=== PATIENT | male | born 1965 | race African-American/Black ===

== ENCOUNTER 2018-07-29 14:27 | Inpatient (IN) | payer OTHER ==
[2018-07-29 17:25] VITALS: BMI 24.1
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
[2018-07-29] MEDS ORDERED: MAG HYDROX/AL HYDROX/SIMETH 30 ML UNIT-DOSE CUP PO PRN (18:55)
[2018-07-29] MEDS ORDERED: IBUPROFEN 400 MG TABLET (FP) PO PRN (18:55)
[2018-07-29] MEDS ORDERED: NICOTINE POLACRILEX 2 MG GUM BC PRN (18:55)
[2018-07-29] MEDS ORDERED: P-EPHED 60MG/TRIPROLIDI 2.5MG TABLET PO PRN (18:55)
[2018-07-29] MEDS ORDERED: MAGNESIUM CITRATE 300 ML BOTTLE PO PRN (18:55)
[2018-07-29] MEDS ORDERED: MAGNESIUM HYDROX 2400MG/30ML ORAL SUSPENSION 30 ML CUP PO PRN (18:55)
[2018-07-29] MEDS ORDERED: LOPERAMIDE HCL 2 MG CAPSULE PO PRN (18:55)
[2018-07-29] MEDS ORDERED: ALBUTEROL SO4 8 GM HFA INHALER IH PRN (18:56)
[2018-07-29] MEDS ORDERED: diazePAM 5 MG TABLET PO ONE (20:00)
[2018-07-29] MEDS: ACETAMINOPHEN 325 MG TABLET (FP) PO PRN (22:34)
[2018-07-29] MEDS: MELATONIN 5 MG TABLETS PO PRN (22:38)
[2018-07-29] MEDS: diazePAM 5 MG TABLET PO SCH (22:38)
[2018-07-29] MEDS: THIAMINE HCL 100 MG TABLET (FP) PO SCH (22:38)
[2018-07-30] MEDS: diazePAM 5 MG TABLET PO SCH ×3 (06:22→22:11)
[2018-07-30] MEDS: diazePAM 5 MG TABLET PO PRN ×2 (09:52→17:07)
[2018-07-30] MEDS: NICOTINE 14 MG/24 HOURS TOPICAL PATCH TD SCH (09:52)
[2018-07-30] MEDS: MENTHOL/PHENOL 1 EACH UD MM PRN ×2 (09:52→17:07)
[2018-07-30] MEDS: PRENATAL VITAMINS W/ FOLIC ACID TABLET (FP) PO SCH (09:52)
[2018-07-30 10:21] LABS: HEMATOCRIT 38.6 % (35.4-49); HEMOGLOBIN 12.7 GM/dL (11.7-16.9); MCH 31.3 pg (25.7-33.7); MEAN CELL VOLUME 94.8 fl (80-96); MEAN PLT VOLUME 9.5 fl (7.5-11.1); PLATELET COUNT 199 K/MM3 (134-434); RBC 4.07 M/mm3 (4.00-5.60); RDW 13.8 % (11.9-15.9); WHITE BLOOD COUNT 5.7 K/mm3 (4.0-10.0)
[2018-07-30 10:56] LABS: ALBUMIN 3.2 g/dl (3.4-5.0); ALK PHOS 57 U/L (45-117); ANION GAP 9 MMOL/L (8-16); BILIRUBIN,TOTAL 0.6 mg/dL (0.2-1); BLOOD UREA NITROGEN 13 mg/dL (7-18); CALCIUM 8.4 mg/dL (8.5-10.1); CHLORIDE 107 mmol/L (98-107); CO2 28 mmol/L (21-32); CREATININE 1.1 mg/dL (0.55-1.3); GLUCOSE,RANDOM 87 mg/dL (74-106); POTASSIUM 3.9 mmol/L (3.5-5.1); SGOT/AST 15 U/L (15-37); SGPT/ALT 20 U/L (13-61); SODIUM 144 mmol/L (136-145); TOT PROT 5.7 g/dl (6.4-8.2)
[2018-07-30 13:26] LABS: URINE APPEARANCE CLEAR; URINE BILIRUBIN NEGATIVE (<2.0 mg/dL); URINE COLOR YELLOW; URINE GLUCOSE (UA) NEGATIVE (NEGATIVE); URINE KETONE NEGATIVE (NEGATIVE); URINE LEUK ESTERASE NEGATIVE (NEGATIVE); URINE NITRITE NEGATIVE (NEGATIVE); URINE PROTEIN NEGATIVE (NEGATIVE)
--- NOTE | 2018-07-30 14:46 | EKG ---
Test Reason : Blood Pressure : / mmHG Vent. Rate : 078 BPM Atrial Rate : 078 BPM P-R Int : 132 ms QRS Dur : 082 ms QT Int : 354 ms P-R-T Axes : 079 076 065 degrees QTc Int : 403 ms NORMAL SINUS RHYTHM VOLTAGE CRITERIA FOR LEFT VENTRICULAR HYPERTROPHY NONSPECIFIC T WAVE ABNORMALITY ABNORMAL ECG WHEN COMPARED WITH ECG OF 07-AUG-2017 11:01, NO SIGNIFICANT CHANGE WAS FOUND Confirmed by MD Amita, Owen ([id number]) on 07/30/2018 2:45:53 PM Referred By: Confirmed By:Owen Levi MD
--- NOTE | 2018-07-30 16:55 | PN ---
[facility] CIWA - CIWA Score Nausea/Vomitin-No Nausea/No Vomiting Muscle Tremors: 2 Anxiety: 2 Agitation: 2 Paroxysmal Sweats: 2 Orientation: 0-Oriented Tacttile Disturbances: 1-Very Mild Itch/Numbness Auditory Disturbances: 0-None Visual Disturbances: 1-Very Mild Sensitivity Headache: 2-Mild CIWA-Ar Total Score: 12 S Progress Note (SOAP) Subjective: body aches, chills, sweats Objective: 07/30/18 16:54 Vital Signs Temperature 96.6 F L 07/30/18 13:43 Pulse Rate 74 07/30/18 13:43 Respiratory Rate 18 07/30/18 13:43 Blood Pressure 125/84 07/30/18 13:43 O2 Sat by Pulse Oximetry (%) Laboratory Last Values WBC 5.7 K/mm3 (4.0-10.0) 07/30/18 08:00 RBC 4.07 M/mm3 (4.00-5.60) 07/30/18 08:00 Hgb 12.7 GM/dL (11.7-16.9) 07/30/18 08:00 Hct 38.6 % (35.4-49) 07/30/18 08:00 MCV 94.8 fl (80-96) 07/30/18 08:00 MCH 31.3 pg (25.7-33.7) 07/30/18 08:00 MCHC 33.0 g/dl (32.0-35.9) 07/30/18 08:00 RDW 13.8 % (11.9-15.9) 07/30/18 08:00 Plt Count 199 K/MM3 (134-434) 07/30/18 08:00 MPV 9.5 fl (7.5-11.1) 07/30/18 08:00 Sodium 144 mmol/L (136-145) 07/30/18 08:00 Potassium 3.9 mmol/L (3.5-5.1) 07/30/18 08:00 Chloride 107 mmol/L (98-107) 07/30/18 08:00 Carbon Dioxide 28 mmol/L (21-32) 07/30/18 08:00 Anion Gap 9 MMOL/L (8-16) 07/30/18 08:00 BUN 13 mg/dL (7-18) 07/30/18 08:00 Creatinine 1.1 mg/dL (0.55-1.3) 07/30/18 08:00 Creat Clearance w eGFR > 60 (>60) 07/30/18 08:00 Random Glucose 87 mg/dL (74-106) 07/30/18 08:00 Calcium 8.4 mg/dL (8.5-10.1) L 07/30/18 08:00 Total Bilirubin 0.6 mg/dL (0.2-1) 07/30/18 08:00 AST 15 U/L (15-37) 07/30/18 08:00 ALT 20 U/L (13-61) 07/30/18 08:00 Alkaline Phosphatase 57 U/L (45-117) 07/30/18 08:00 Total Protein 5.7 g/dl (6.4-8.2) L 07/30/18 08:00 Albumin 3.2 g/dl (3.4-5.0) L 07/30/18 08:00 Urine Color Yellow 07/30/18 09:30 Urine Appearance Clear 07/30/18 09:30 Urine pH 6.0 (5.0-8.0) 07/30/18 09:30 Ur Specific [place] 1.015 (1.010-1.035) 07/30/18 09:30 Urine Protein Negative (NEGATIVE) 07/30/18 09:30 Urine Glucose (UA) Negative (NEGATIVE) 07/30/18 09:30 Urine Ketones Negative (NEGATIVE) 07/30/18 09:30 Urine Blood Negative (NEGATIVE) 07/30/18 09:30 Urine Nitrite Negative (NEGATIVE) 07/30/18 09:30 Urine Bilirubin Negative (<2.0 mg/dL) 07/30/18 09:30 Urine Urobilinogen 2.0 mg/dL (0.2-1.0) 07/30/18 09:30 Ur Leukocyte Esterase Negative (NEGATIVE) 07/30/18 09:30 RPR Titer Nonreactive (NONREACTIVE) 07/30/18 08:00 Aox3 no distress no adventitious breath sounds full ROM ambulatory Assessment: 07/30/18 16:54 withdrawal sx Plan: increase fluids continue detox continue to monitor
[2018-07-30] MEDS: ACETAMINOPHEN 325 MG TABLET (FP) PO PRN (17:08)
[2018-07-30] MEDS: THIAMINE HCL 100 MG TABLET (FP) PO SCH (22:11)
[2018-07-30] MEDS: guaiFENesin/D-METHORPHAN HB 10 ML UNIT-DOSE CUPS PO PRN (22:12)
[2018-07-31] MEDS: diazePAM 5 MG TABLET PO PRN (03:08)
[2018-07-31] MEDS ORDERED: hydrOXYzine HCL 25 MG TABLET (FP) PO PRN (10:16)
[2018-07-31] MEDS: NICOTINE 14 MG/24 HOURS TOPICAL PATCH TD SCH (10:34)
[2018-07-31] MEDS: PRENATAL VITAMINS W/ FOLIC ACID TABLET (FP) PO SCH (10:34)
[2018-07-31] MEDS: diazePAM 5 MG TABLET PO SCH ×2 (10:34→22:12)
[2018-07-31] MEDS: guaiFENesin/D-METHORPHAN HB 10 ML UNIT-DOSE CUPS PO PRN ×2 (10:35→17:56)
--- NOTE | 2018-07-31 12:00 | PN ---
[facility] CIWA - CIWA Score Nausea/Vomitin Muscle Tremors: 3 Anxiety: 3 Agitation: 3 Paroxysmal Sweats: 3 Orientation: 0-Oriented Tacttile Disturbances: 0-None Auditory Disturbances: 0-None Visual Disturbances: 0-None Headache: 0-None Present CIWA-Ar Total Score: 14 S Progress Note (SOAP) Subjective: Runny nose, sneezing, chills, interrupted sleep, anxious Objective: 07/31/18 11:58 Last Vital Signs Temp Pulse Resp BP Pulse Ox 97.2 F L 83 18 128/76 07/31/18 09:36 07/31/18 09:36 07/31/18 09:36 07/31/18 09:36 Laboratory Tests 07/30/18 07/30/18 07/30/18 08:00 08:00 08:00 WBC 5.7 RBC 4.07 Hgb 12.7 Hct 38.6 MCV 94.8 MCH 31.3 MCHC 33.0 RDW 13.8 Plt Count 199 MPV 9.5 Sodium 144 Potassium 3.9 Chloride 107 Carbon Dioxide 28 Anion Gap 9 BUN 13 Creatinine 1.1 Creat Clearance w eGFR > 60 Random Glucose 87 Calcium 8.4 L Total Bilirubin 0.6 AST 15 ALT 20 Alkaline Phosphatase 57 Total Protein 5.7 L Albumin 3.2 L Urine Color Urine Appearance Urine pH Ur Specific [place] Urine Protein Urine Glucose (UA) Urine Ketones Urine Blood Urine Nitrite Urine Bilirubin Urine Urobilinogen Ur Leukocyte Esterase RPR Titer Nonreactive 07/30/18 09:30 WBC RBC Hgb Hct MCV MCH MCHC RDW Plt Count MPV Sodium Potassium Chloride Carbon Dioxide Anion Gap BUN Creatinine Creat Clearance w eGFR Random Glucose Calcium Total Bilirubin AST ALT Alkaline Phosphatase Total Protein Albumin Urine Color Yellow Urine Appearance Clear Urine pH 6.0 Ur Specific [place] 1.015 Urine Protein Negative Urine Glucose (UA) Negative Urine Ketones Negative Urine Blood Negative Urine Nitrite Negative Urine Bilirubin Negative Urine Urobilinogen 2.0 Ur Leukocyte Esterase Negative RPR Titer Labs reviewed Assessment: 07/31/18 12:00 Withdrawal symptoms Plan: Continue detox Encouraged PO water intake
[2018-07-31] MEDS: ACETAMINOPHEN 325 MG TABLET (FP) PO PRN (12:55)
[2018-07-31] MEDS: MENTHOL/PHENOL 1 EACH UD MM PRN (12:57)
[2018-07-31] MEDS: THIAMINE HCL 100 MG TABLET (FP) PO SCH (22:12)
[2018-07-31] MEDS: MELATONIN 5 MG TABLETS PO PRN (22:13)
[2018-08-01 09:05] VITALS: BP 132/83; PULSE 86; TEMP 98.1
--- NOTE | 2018-08-01 09:56 | DS ---
[facility] Detox Discharge Summary Admission Date: 07/29/18 Discharge Date: 08/01/18 - History Present History: Alcohol Dependence Additional Comments: Patient requested to leave today. As per patient, he is feeling much better and denied any withdrawal symptoms. As per patient, his daughter is scheduled to have surgery today at 12 noon and he has to leave. Patient agreed to call 911 if feeling sick or any withdrawal symptoms and to follow up with his PCP within 1 week. Patient given regular discharge.He is stable for discharge and is in nad. Pertinent Past History: Sickle cell anemia Asthma COPD Emphysema Nicotine dependence - Physical Exam Results Vital Signs: Vital Signs Temperature 98.1 F 08/01/18 09:05 Pulse Rate 86 08/01/18 09:05 Respiratory Rate 18 08/01/18 09:05 Blood Pressure 132/83 08/01/18 09:05 O2 Sat by Pulse Oximetry (%) Pertinent Admission Physical Exam Findings: Withdrawal symptoms Laboratory Tests 07/30/18 07/30/18 07/30/18 08:00 08:00 08:00 WBC 5.7 RBC 4.07 Hgb 12.7 Hct 38.6 MCV 94.8 MCH 31.3 MCHC 33.0 RDW 13.8 Plt Count 199 MPV 9.5 Sodium 144 Potassium 3.9 Chloride 107 Carbon Dioxide 28 Anion Gap 9 BUN 13 Creatinine 1.1 Creat Clearance w eGFR > 60 Random Glucose 87 Calcium 8.4 L Total Bilirubin 0.6 AST 15 ALT 20 Alkaline Phosphatase 57 Total Protein 5.7 L Albumin 3.2 L Urine Color Urine Appearance Urine pH Ur Specific [place] Urine Protein Urine Glucose (UA) Urine Ketones Urine Blood Urine Nitrite Urine Bilirubin Urine Urobilinogen Ur Leukocyte Esterase RPR Titer Nonreactive 07/30/18 09:30 WBC RBC Hgb Hct MCV MCH MCHC RDW Plt Count MPV Sodium Potassium Chloride Carbon Dioxide Anion Gap BUN Creatinine Creat Clearance w eGFR Random Glucose Calcium Total Bilirubin AST ALT Alkaline Phosphatase Total Protein Albumin Urine Color Yellow Urine Appearance Clear Urine pH 6.0 Ur Specific [place] 1.015 Urine Protein Negative Urine Glucose (UA) Negative Urine Ketones Negative Urine Blood Negative Urine Nitrite Negative Urine Bilirubin Negative Urine Urobilinogen 2.0 Ur Leukocyte Esterase Negative RPR Titer Labs reviewed - Treatment Hospital Course: Detox Protocol Followed, Detoxed Safely, Responded well, Discharged Condition Good - Medication Discharge Medications: Ambulatory Orders Albuterol Sulfate Inhaler - [Ventolin HFA Inhaler -] 2 puff IH Q4H PRN #1 inhaler 08/09/17 - Diagnosis (1) Alcohol dependence with uncomplicated withdrawal Status: Acute (2) Asthma Status: Chronic Qualifiers: Asthma severity: mild Asthma complication type: with status asthmaticus (3) Depression Status: Chronic Qualifiers: Depression Type: unspecified Qualified Code(s): F32.9 - Major depressive disorder, single episode, unspecified (4) Emphysema/COPD Status: Chronic Qualifiers: Emphysema type: unilateral Qualified Code(s): J43.0 - Unilateral pulmonary emphysema [MacLeod's syndrome] (5) Nicotine dependence Status: Chronic Qualifiers: Nicotine product type: cigarettes Substance use status: uncomplicated Qualified Code(s): F17.210 - Nicotine dependence, cigarettes, uncomplicated (6) Sickle cell anemia Status: Chronic Qualifiers: Sickle-cell associated disorders: without crisis Qualified Code(s): D57.1 - Sickle-cell disease without crisis - AMA Did Patient Leave Against Medical Advice: No (F/U with your PCP within 1 week)
[2018-08-02] MEDS ORDERED: diazePAM 5 MG TABLET PO SCH (10:00)
== END 2018-08-01 09:17 | disposition home or self-care (01) | DRG 774 ==
LOC: YASAS 14:27 → Y3N 19:26
PROC: HZ2ZZZZ Detoxification Services for Substance Abuse Treatment (ICD-10-PCS; principal; 2018-07-29)
DX: F10.230 Alcohol dependence with withdrawal, uncomplicated (principal); F13.230 Sedative, hypnotic or anxiolytic dependence with withdrawal, uncomplicated; F14.20 Cocaine dependence, uncomplicated; F17.210 Nicotine dependence, cigarettes, uncomplicated; F32.9 Major depressive disorder, single episode, unspecified; J45.902 Unspecified asthma with status asthmaticus; J43.0 Unilateral pulmonary emphysema [MacLeod's syndrome]; D57.1 Sickle-cell disease without crisis; R01.1 Cardiac murmur, unspecified; G47.30 Sleep apnea, unspecified; Z88.0 Allergy status to penicillin; Z88.6 Allergy status to analgesic agent; Z87.891 Personal history of nicotine dependence
CPT/HCPCS: 36415; 80053; 81003; 85027; 86593; 93005; 93010

== ENCOUNTER 2018-09-19 11:54 | Inpatient (IN) | payer OTHER ==
[2018-09-19 12:43] VITALS: BMI 23.5
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
[2018-09-19] MEDS ORDERED: ACETAMINOPHEN 325 MG TABLET (FP) PO PRN (14:47)
[2018-09-19] MEDS ORDERED: MAG HYDROX/AL HYDROX/SIMETH 30 ML UNIT-DOSE CUP PO PRN (14:47)
[2018-09-19] MEDS ORDERED: MAGNESIUM CITRATE 300 ML BOTTLE PO PRN (14:47)
[2018-09-19] MEDS ORDERED: hydrOXYzine PAMOATE 50 MG CAPSULE (FP) PO PRN (14:47)
[2018-09-19] MEDS ORDERED: IBUPROFEN 400 MG TABLET (FP) PO PRN (14:47)
[2018-09-19] MEDS ORDERED: MAGNESIUM HYDROX 2400MG/30ML ORAL SUSPENSION 30 ML CUP PO PRN (14:47)
[2018-09-19] MEDS ORDERED: P-EPHED 60MG/TRIPROLIDI 2.5MG TABLET PO PRN (14:47)
[2018-09-19] MEDS ORDERED: MENTHOL/PHENOL 1 EACH UD MM PRN (14:47)
[2018-09-19] MEDS ORDERED: ALBUTEROL SO4 8 GM HFA INHALER IH PRN (14:50)
[2018-09-19] MEDS ORDERED: diazePAM 5 MG TABLET PO PRN (14:51)
[2018-09-19] MEDS ORDERED: diazePAM 5 MG TABLET PO ONE (16:00)
[2018-09-19] MEDS: MELATONIN 5 MG TABLETS PO PRN (22:24)
[2018-09-19] MEDS: THIAMINE HCL 100 MG TABLET (FP) PO SCH (22:24)
[2018-09-19] MEDS: diazePAM 5 MG TABLET PO SCH (22:24)
[2018-09-20] MEDS: diazePAM 5 MG TABLET PO SCH ×3 (05:46→22:19)
[2018-09-20 10:30] LABS: HEMATOCRIT 38.3 % (35.4-49); HEMOGLOBIN 12.7 GM/dL (11.7-16.9); MCH 31.1 pg (25.7-33.7); MCHC 33.1 g/dl (32.0-35.9); MEAN CELL VOLUME 94.1 fl (80-96); MEAN PLT VOLUME 9.1 fl (7.5-11.1); PLATELET COUNT 219 K/MM3 (134-434); RBC 4.07 M/mm3 (4.00-5.60); RDW 13.5 % (11.9-15.9)
[2018-09-20] MEDS: PRENATAL VITAMINS W/ FOLIC ACID TABLET (FP) PO SCH (10:40)
[2018-09-20] MEDS: LOPERAMIDE HCL 2 MG CAPSULE PO PRN (10:42)
[2018-09-20 10:44] LABS: ALK PHOS 61 U/L (45-117); ANION GAP 6 MMOL/L (8-16); BILIRUBIN,TOTAL 0.3 mg/dL (0.2-1); BLOOD UREA NITROGEN 17 mg/dL (7-18); CALCIUM 8.2 mg/dL (8.5-10.1); CHLORIDE 108 mmol/L (98-107); CO2 26 mmol/L (21-32); CREATININE 1.1 mg/dL (0.55-1.3); GLUCOSE,RANDOM 94 mg/dL (74-106); POTASSIUM 4.1 mmol/L (3.5-5.1); SGOT/AST 20 U/L (15-37); SGPT/ALT 35 U/L (13-61); SODIUM 140 mmol/L (136-145); TOT PROT 5.7 g/dl (6.4-8.2)
[2018-09-20] MEDS: guaiFENesin/D-METHORPHAN HB 10 ML UNIT-DOSE CUPS PO PRN ×2 (13:26→22:20)
--- NOTE | 2018-09-20 14:53 | PN ---
[facility] CIWA - CIWA Score Nausea/Vomitin-No Nausea/No Vomiting Muscle Tremors: 3 Anxiety: 3 Agitation: 2 Paroxysmal Sweats: 1-Minimal Palms Moist Orientation: 0-Oriented Tacttile Disturbances: 0-None Auditory Disturbances: 0-None Visual Disturbances: 0-None Headache: 2-Mild CIWA-Ar Total Score: 11 S Progress Note (SOAP) Subjective: low energy tremor cold sweat anxiety anxious about relapse Objective: 09/20/18 14:56 Vital Signs Temperature 97.4 F L 09/20/18 14:46 Pulse Rate 75 09/20/18 14:46 Respiratory Rate 16 09/20/18 14:46 Blood Pressure 130/80 09/20/18 14:46 O2 Sat by Pulse Oximetry (%) Laboratory Last Values WBC 5.0 K/mm3 (4.0-10.0) 09/20/18 07:00 RBC 4.07 M/mm3 (4.00-5.60) 09/20/18 07:00 Hgb 12.7 GM/dL (11.7-16.9) 09/20/18 07:00 Hct 38.3 % (35.4-49) 09/20/18 07:00 MCV 94.1 fl (80-96) 09/20/18 07:00 MCH 31.1 pg (25.7-33.7) 09/20/18 07:00 MCHC 33.1 g/dl (32.0-35.9) 09/20/18 07:00 RDW 13.5 % (11.9-15.9) 09/20/18 07:00 Plt Count 219 K/MM3 (134-434) 09/20/18 07:00 MPV 9.1 fl (7.5-11.1) 09/20/18 07:00 Sodium 140 mmol/L (136-145) 09/20/18 07:00 Potassium 4.1 mmol/L (3.5-5.1) 09/20/18 07:00 Chloride 108 mmol/L (98-107) H 09/20/18 07:00 Carbon Dioxide 26 mmol/L (21-32) 09/20/18 07:00 Anion Gap 6 MMOL/L (8-16) L 09/20/18 07:00 BUN 17 mg/dL (7-18) 09/20/18 07:00 Creatinine 1.1 mg/dL (0.55-1.3) 09/20/18 07:00 Creat Clearance w eGFR > 60 (>60) 09/20/18 07:00 Random Glucose 94 mg/dL (74-106) 09/20/18 07:00 Calcium 8.2 mg/dL (8.5-10.1) L 09/20/18 07:00 Total Bilirubin 0.3 mg/dL (0.2-1) 09/20/18 07:00 AST 20 U/L (15-37) 09/20/18 07:00 ALT 35 U/L (13-61) 09/20/18 07:00 Alkaline Phosphatase 61 U/L (45-117) 09/20/18 07:00 Total Protein 5.7 g/dl (6.4-8.2) L 09/20/18 07:00 Albumin 3.0 g/dl (3.4-5.0) L 09/20/18 07:00 RPR Titer Nonreactive (NONREACTIVE) 09/20/18 07:00 lab noted Assessment: 09/20/18 14:57 withdrawal sx Plan: continue detox
[2018-09-20] MEDS: THIAMINE HCL 100 MG TABLET (FP) PO SCH (22:19)
[2018-09-20] MEDS: MELATONIN 5 MG TABLETS PO PRN (22:20)
[2018-09-21] MEDS: PRENATAL VITAMINS W/ FOLIC ACID TABLET (FP) PO SCH (10:04)
[2018-09-21] MEDS: diazePAM 5 MG TABLET PO SCH ×2 (10:04→22:06)
--- NOTE | 2018-09-21 11:15 | PN ---
S CIWA - CIWA Score Nausea/Vomitin Muscle Tremors: 3 Anxiety: 2 Agitation: 1-Slight > Activity Paroxysmal Sweats: No Perspiration Orientation: 0-Oriented Tacttile Disturbances: 0-None Auditory Disturbances: 0-None Visual Disturbances: 0-None Headache: 0-None Present CIWA-Ar Total Score: 9 [facility] Progress Note (SOAP) Subjective: PATIENT C/O NAUSEA AND VOMITING LAST NIGHT, ANXIETY, [place]. Objective: 09/21/18 11:13 Vital Signs Temperature 96 F L 09/21/18 09:04 Pulse Rate 84 09/21/18 09:04 Respiratory Rate 20 09/21/18 09:04 Blood Pressure 126/81 09/21/18 09:04 O2 Sat by Pulse Oximetry (%) Laboratory Tests 09/20/18 09/20/18 09/20/18 07:00 07:00 07:00 WBC 5.0 RBC 4.07 Hgb 12.7 Hct 38.3 MCV 94.1 MCH 31.1 MCHC 33.1 RDW 13.5 Plt Count 219 MPV 9.1 Sodium 140 Potassium 4.1 Chloride 108 H Carbon Dioxide 26 Anion Gap 6 L BUN 17 Creatinine 1.1 Creat Clearance w eGFR > 60 Random Glucose 94 Calcium 8.2 L Total Bilirubin 0.3 AST 20 ALT 35 Alkaline Phosphatase 61 Total Protein 5.7 L Albumin 3.0 L RPR Titer Nonreactive PE: ALERT AND ORIENTED X 3 SKIN WARM AND DRY EXT FULL ROM, AMB AD ANNA MARIE +TREMORS +ANXIETY Assessment: 09/21/18 11:14 WITHDRAWAL SX Plan: CONTINUE DETOX ENCOURAGED ORAL FLUIDS CONTINUE TO MONITOR CLINICALLY
[2018-09-21] MEDS: THIAMINE HCL 100 MG TABLET (FP) PO SCH (22:06)
[2018-09-21] MEDS: MELATONIN 5 MG TABLETS PO PRN (22:07)
[2018-09-22] MEDS: diazePAM 5 MG TABLET PO SCH ×2 (10:17→23:16)
[2018-09-22] MEDS: PRENATAL VITAMINS W/ FOLIC ACID TABLET (FP) PO SCH (10:17)
[2018-09-22] MEDS: LOPERAMIDE HCL 2 MG CAPSULE PO PRN (12:26)
--- NOTE | 2018-09-22 13:31 | PN ---
[facility] Progress Note Note: PATIENT CONTINUES WITH DETOX REGIMEN. C/O INDIGESTION AND SOFT STOOLS. Vital Signs Temperature 97.4 F L 09/22/18 09:07 Pulse Rate 80 09/22/18 09:07 Respiratory Rate 16 09/22/18 09:07 Blood Pressure 119/76 09/22/18 09:07 O2 Sat by Pulse Oximetry (%) Laboratory Tests 09/20/18 09/20/18 09/20/18 07:00 07:00 07:00 WBC 5.0 RBC 4.07 Hgb 12.7 Hct 38.3 MCV 94.1 MCH 31.1 MCHC 33.1 RDW 13.5 Plt Count 219 MPV 9.1 Sodium 140 Potassium 4.1 Chloride 108 H Carbon Dioxide 26 Anion Gap 6 L BUN 17 Creatinine 1.1 Creat Clearance w eGFR > 60 Random Glucose 94 Calcium 8.2 L Total Bilirubin 0.3 AST 20 ALT 35 Alkaline Phosphatase 61 Total Protein 5.7 L Albumin 3.0 L RPR Titer Nonreactive PE: ALERT AND ORIENTED X 3 SKIN WARM AND DRY EXT FULL ROM, NO EDEMA AMB AD ANNA MARIE A/P: WITHDRAWAL SX CONTINUE DETOX ENCOURAGE ORAL FLUIDS GINGERALE WITH MEALS MONITOR
[2018-09-22] MEDS: THIAMINE HCL 100 MG TABLET (FP) PO SCH (23:16)
[2018-09-23 06:36] VITALS: BP 119/70; PULSE 65; TEMP 96.9
[2018-09-23] MEDS ORDERED: diazePAM 5 MG TABLET PO SCH (10:00)
--- NOTE | 2018-09-23 10:26 | DS ---
[facility] Detox Discharge Summary Admission Date: 09/19/18 Discharge Date: 09/23/18 - History Present History: Alcohol Dependence, Cocaine Dependence - Physical Exam Results Vital Signs: Vital Signs Temperature 96.9 F L 09/23/18 06:35 Pulse Rate 65 09/23/18 06:35 Respiratory Rate 16 09/23/18 06:35 Blood Pressure 119/70 09/23/18 06:35 O2 Sat by Pulse Oximetry (%) Pertinent Admission Physical Exam Findings: PATIENT COMPLETED DETOX REGIMEN WITHOUT ADVERSE EVENT. PATIENT D/C CLINICALLY STABLE, DENIES SI/HI. PATIENT ENCOURAGED TO ATTEND GROUP MEETINGS,AA, TO PREVENT RELAPSE. PATIENT ADVISED TO FOLLOW UP WITH PCP AND TO SEEK MEDICAL ATTENTION IF WITHDRAWAL SX OCCUR. D/C INSTRUCTIONS GIVEN TO PATIENT BY STAFF. - Treatment Hospital Course: Detox Protocol Followed, Detoxed Safely, Responded well, Discharged Condition Good - Medication Discharge Medications: Ambulatory Orders Albuterol Sulfate Inhaler - [Ventolin HFA Inhaler -] 2 puff IH Q4H PRN #1 inhaler 08/09/17 - Diagnosis (1) Alcohol dependence with uncomplicated withdrawal Status: Resolved (2) Cocaine dependence, uncomplicated Status: Chronic (3) Sedative, hypnotic or anxiolytic dependence with withdrawal, uncomplicated Status: Chronic - AMA Did Patient Leave Against Medical Advice: No
== END 2018-09-23 09:33 | disposition home or self-care (01) | DRG 774 ==
LOC: YASAS 11:54 → Y3N 14:52
PROC: HZ2ZZZZ Detoxification Services for Substance Abuse Treatment (ICD-10-PCS; principal; 2018-09-19)
DX: F10.230 Alcohol dependence with withdrawal, uncomplicated (principal); F13.230 Sedative, hypnotic or anxiolytic dependence with withdrawal, uncomplicated; F14.20 Cocaine dependence, uncomplicated; F17.210 Nicotine dependence, cigarettes, uncomplicated; J45.909 Unspecified asthma, uncomplicated; D57.1 Sickle-cell disease without crisis; R01.1 Cardiac murmur, unspecified; Z88.0 Allergy status to penicillin; Z88.6 Allergy status to analgesic agent
CPT/HCPCS: 36415; 80053; 85027; 86593